=== PATIENT | female | born 1985 | race Caucasian/White ===

== ENCOUNTER 2017-02-18 08:12 | Emergency (ER) | payer MEDICAID ==
[~2017-02-18] VITALS: Ht 157.5 cm; Wt 63.5 kg
[~2017-02-18 08:12] MED LIST: APAP/HYDROCODON1 T13 PO; BACTRIM1 TAB; MACROBID100 MG PO; MOTRIN800 MG PO; PYR100 PO; ZOFRAN ODT4 MG SL
[2017-02-18 09:52] LABS: microscopic required? YES; urine erythrocyte TRACE (NEGATIVE)
[2017-02-18 09:54] LABS: AMPHETAMINE QUAL UR NONE DETECTED (NEG <=1000)
[2017-02-18 11:41] VITALS: BP 98/48
== END 2017-02-18 11:41 | disposition home or self-care (01) ==
LOC: ED 08:12
PROVIDERS: Emergency Medicine
DX: G43.909 Migraine, unspecified, not intractable, without status migrainosus (principal); Z88.1 Allergy status to other antibiotic agents
CPT/HCPCS: 80307; J1885

== ENCOUNTER 2017-03-19 20:26 | Emergency (ER) | payer MEDICAID ==
[2017-03-19 21:33] LABS: BASOPHIL % 0.4 % (0-2); PLATELET COUNT 210 x10^3mcL (130-400); RED CELL DISTRIBUTION WIDTH 13.9 % (11.5-14.5)
[2017-03-19 21:41] LABS: CARBON DIOXIDE 24.6 mmol/L (21-32); CHLORIDE SERUM 105 mmol/L (98-107); GFR1 > 60 mL/min; GLUCOSE SERUM 95 mg/dL (74-106); POTASSIUM SERUM 4.1 mmol/L (3.5-5.1); SODIUM SERUM 140 mmol/L (136-145)
[2017-03-19 21:45] LABS: ALBUMIN 3.8 g/dL (3.4-5.0); ALKALINE PHOSPHATASE 65 U/L (46-116); ALT/SGPT 26 U/L (14-59); AMYLASE 48 U/L (25-115); AST/SGOT 19 U/L (15-37); BILIRUBIN TOTAL 0.5 mg/dL (0.20-1.00); LIPASE 130 IU/L (73-393); TOTAL PROTEIN, SERUM 7.7 g/dL (6.4-8.2)
[2017-03-19 23:44] VITALS: BP 120/67
== END 2017-03-19 23:45 | disposition home or self-care (01) ==
LOC: ED 20:26
PROVIDERS: Emergency Medicine
DX: N10 Acute pyelonephritis (principal); Z79.899 Other long term (current) drug therapy; Z88.1 Allergy status to other antibiotic agents
CPT/HCPCS: 83880; J1885; J1956; J2405; J7030

== ENCOUNTER 2017-03-20 01:03 | Inpatient (IN) | payer MEDICAID ==
[~2017-03-20] VITALS: Ht 157.5 cm; Wt 61.2 kg
--- NOTE | 2017-03-20 01:22 | NUR ---
PT BIB [facility]. PT STATES SHE WAS JUST DISCHARGED FROM HERE THIS EVENING AND WHEN SHE GOT HOME THE "PAIN IN MY KIDNEYS GOT GOT WORSE". PER [facility] OT WAS DISCHARGED WITH A PERSCRIPTION FOR NORCO AND AN UNKNOWN ABX BUT LEFT PERSCRIPTION AND PERSCRIPTION ON TABLE AT HOME AND CAME BACK HERE WHEN PAIN GOT WORSE. PT AWAKE AND ALERT, RESP EVEN AND UNLABORED. NO DISTRESS NOTED
--- NOTE | 2017-03-20 01:39 | NUR ---
MSE COMPLETED BY DR PALACIOS
--- NOTE | 2017-03-20 01:57 | NUR ---
PT MEDICATED WITH 30MG TORADOL SLOW IV PUSH AND 4MG ZOFRAN SLOW IV PUSH PER MD ORDERS. NS INFUSING AT 150ML/HR VIA IV PUMP. PT AWAKE AND ALERT, SIGNIFICANT OTHER AT BEDSIDE, NO DISTRESS NOTED
--- NOTE | 2017-03-20 02:33 | NUR ---
REPORT CALLED TO JENNIFER TO ASSUME CARE OF PT
--- NOTE | 2017-03-20 03:09 | NUR ---
RECEIVED FROM ER VIA GURNEY. ADMITS FOR PYELONEPHRITIS. AWAKE, ALERT, ORIENTED X4. NO RESP DISTRESS NOTED ON ROOM AIR. V/S CHECKED BP 92/57, HR 84, RR 18, O2SAT 99% ON ROOM AIR, AFEBRILE. HOB ELEVATED AT 30DEG. ABDOMEN SOFT AND FLAT. MEDICAL STUDENT AT BEDSIDE. IV ACCESS TO LAC WITH NS INFUSING WELL. ORIENTING TO ROOM ENVIRONMENT. CALL LIGHT PLACED WITHIN EASY REACH. SIDERAILS UP X2.
[2017-03-20 03:23] VITALS: BP 92/57
--- NOTE | 2017-03-20 03:50 | NUR ---
MORPHINE 2MG IVP GIVEN FOR FLANK PAIN, NO ADVERSE REACTION NOTED.
[2017-03-20 03:51] LABS: FREE T4 1.14 ng/dL (0.76-1.46); FREE THYROXINE INDEX 2.6 ug/dL (1.4-4.5); T3 TOTAL 1.16 ng/mL; T4(THYROXINE) 7.3 ug/dL (4.7-13.3)
[2017-03-20 04:14] LABS: MAGNESIUM 2.1 mg/dL (1.8-2.4); PHOSPHOROUS 2.4 mg/dL (2.5-4.9)
--- NOTE | 2017-03-20 05:16 | NUR ---
LACTULOSE 15ML NOT AVAILABLE, DOCTOR ALLISON MADE AWARE, WILL ENDORSE TO INCOMING RN.
[2017-03-20 06:07] VITALS: BP 98/58
[2017-03-20 06:18] LABS: BASOPHIL % 0.4 % (0-2); PLATELET COUNT 196 x10^3mcL (130-400)
--- NOTE | 2017-03-20 06:24 | NUR ---
MORPHINE GIVEN X1 WITH GOOD RELIEF. NOT YET VOIDED. IVF NS INFUSING AT 126ML/HR.
[2017-03-20 06:31] LABS: CALCIUM 8.5 mg/dL (8.5-10.1); CHLORIDE SERUM 108 mmol/L (98-107); GFR1 > 60 mL/min; GLUCOSE SERUM 80 mg/dL (74-106); MAGNESIUM 2.1 mg/dL (1.8-2.4); PHOSPHOROUS 3.4 mg/dL (2.5-4.9); POTASSIUM SERUM 4.5 mmol/L (3.5-5.1); SODIUM SERUM 143 mmol/L (136-145)
--- NOTE | 2017-03-20 07:25 | NUR ---
A/O X4. CLEAR SPEECH. FOLLOW COMMANDS. TEL 29 SR HR 89. RADIAL AND PEDAL PULSES PALPABLE. NO EDEMA OR SWELLING NOTED. <3 SECS CAP REFILL. SCDS IN PLACED. ON RA SAT 99%. BREATHING EVEN AND UNLABORED. CLEAR LUNG SOUNDS. NO NVD. VOIDING ADEQUATELY. HAS MILD GENERALIZED WEAKNESS DUE TO PAIN. NO SKIN TEAR OR OPEN WOUND. COMPLAINS OF FLANK PAIN RADIATING TO BACK. SEE MAR FOR PAIN LEVEL. IV SITE INTACT ON LAC NS INFUSING AT 126 ML/HR. WILL CONTINUE TO MONITOR. CALL LIGHT WITHIN REACH.
--- NOTE | 2017-03-20 08:21 | NUR ---
TOOK MEDS WITHOUT DIFFICULTY. ASSISTED Pt TO BATHROOM.
--- NOTE | 2017-03-20 08:33 | NUR ---
Pt WENT DOWN FOR CT SCAN.
--- NOTE | 2017-03-20 08:41 | NUR ---
Pt CAME BACK FROM CT.
--- NOTE | 2017-03-20 08:41 | NUR ---
URINE SAMPLE SENT DOWN TO LAB.
[2017-03-20 09:26] VITALS: BP 107/67
[2017-03-20 10:00] LABS: microscopic required? YES; urine erythrocyte 3+ (NEGATIVE)
[2017-03-20 12:07] LABS: AMPHETAMINE QUAL UR NONE DETECTED (NEG <=1000)
[2017-03-20 13:03] VITALS: BP 100/63
--- NOTE | 2017-03-20 13:07 | NUR ---
SPOKE TO DR LEPE REGARDING Pt HAVING HEADACHE FROM [place] AND CURRENTLY PAIN IS AT 7/10. ORDERED TO GIVE TORADOL IV. IV 30MG TORADOL GIVEN. WILL CONTINUE TO MONITOR.
--- NOTE | 2017-03-20 13:36 | NUR ---
Pt COMPLAINING OF NAUSEA. IV ZOFRAN GIVEN.
--- NOTE | 2017-03-20 16:21 | NUR ---
Pt SLEEPING AT THIS TIME. NO DISTRESS NOTED. WILL CONTINUE TO MONITOR.
[2017-03-20 16:23] VITALS: BP 97/59
--- NOTE | 2017-03-20 16:55 | NUR ---
Pt COMPLAINING OF HEADACHE. TYLENOL GIVEN. WILL CONTINUE TO MONITOR.
--- NOTE | 2017-03-20 17:00 | NUR ---
COMPLAINS OF HEADACHE. TYLENOL GIVEN. WILL CONTINUE TO MONITOR.
--- NOTE | 2017-03-20 17:52 | NUR ---
Pt COMPLAINING OF NAUSEA. IV ZOFRAN GIVEN. WILL CONTINUE TO MONITOR.
--- NOTE | 2017-03-20 18:30 | NUR ---
X1 ATTEMPT IV INSERTED TO RFA GAUGE 20.
--- NOTE | 2017-03-20 18:58 | NUR ---
Pt COMPLAINING OF SHARP FLANK RADIATING TO BACK PAIN 04/24. IV MORPHINE GIVEN. WILL CONTINUE TO MONITOR.
--- NOTE | 2017-03-20 19:30 | NUR ---
SEEN AWAKE, ALERT,ORIENTED X4. NO RESP DISTRESS NOTED. STS FLANK PAIN IS TOLERABLE. LAST MORPHINE GIVEN WAS 1855HRS BY ALEKSANDR CRAIG. BRP. ON LEVAQUIN IV Q 24HRS. IVF NS INFUSING WELL TO 100ML/HR. PLAN OF CARE DISCUSSED. CALL LIGHT PLACED WITHIN EASY REACH. SIDERAILS UP X2.
[2017-03-20 21:01] VITALS: BP 107/68
--- NOTE | 2017-03-20 22:23 | NUR ---
STS HAVING HEADACHE, REFUSED NORCO OR TYLENOL OFFERRED, TORADOL IVP GIVEN. WILL BE MONITORED.
--- NOTE | 2017-03-21 05:12 | NUR ---
NO ACUTE DISTRESS THROUGHOUT THE SHIFT. VSS. MORPHINE 4MG IV GIVEN X1 FOR FLANK PAIN WITH GOOD RELIEF. BRP. NO BM AFTER LACTULOSE GIVEN. DUE ABX-LEVAQUIN IV GIVEN. IVF NS INFUSING WELL AT 100ML/HR.
[2017-03-21 05:47] VITALS: BP 101/59
[2017-03-21 06:49] LABS: CALCIUM 8.1 mg/dL (8.5-10.1); CARBON DIOXIDE 22.8 mmol/L (21-32); CHLORIDE SERUM 106 mmol/L (98-107); CREATININE SERUM 0.7 mg/dL (0.6-1.0); GFR1 > 60 mL/min; GLUCOSE SERUM 100 mg/dL (74-106); POTASSIUM SERUM 4.1 mmol/L (3.5-5.1); SODIUM SERUM 139 mmol/L (136-145)
[2017-03-21 06:51] LABS: BASOPHIL % 0.3 % (0-2); PLATELET COUNT 197 x10^3mcL (130-400); RED CELL DISTRIBUTION WIDTH 13.5 % (11.5-14.5)
--- NOTE | 2017-03-21 08:26 | NUR ---
Pt complaining of pain 8/10 in bilateral flanks and lower back. Pt given 4mg of morphine.
--- NOTE | 2017-03-21 09:00 | NUR ---
Pt is A+Ox4, has slight headche, complaining of 8/10 in bilateral flanks and lower back, NSR, HR: 95, pulses equal bilaterally, no edema present, lung sounds clear, Pt tolerating room air, Abdomen soft and distended, no BM since admittance, Chronic Pyelonephritis, ambulates independently, skin intact, constant pain, IV on RFA, site WNL, CDI, WBC: 8.3
--- NOTE | 2017-03-21 09:54 | NUR ---
Pt states she continues to be in pain 06/24 and is requesting additional pain meds. [place] tab given.
[2017-03-21 10:00] VITALS: BP 111/66
--- NOTE | 2017-03-21 10:50 | NUR ---
Pt complaining of nausea and migraine. Pt given Zofran 4mg and Tylenol 650 mg. Pt ambulated to the bathroom independently.
--- NOTE | 2017-03-21 13:05 | NUR ---
Pt continues to complain of nausea and migraine pain. Dr. Harris paged and prescribed firocet for migraine pain. Pt given morphine 4mg, and firocet for pain. Will continue to monitor Pt for pain.
--- NOTE | 2017-03-21 14:58 | NUR ---
Pt continues to complain of migraine pain 06/24 and continues to complain of nausea. Pt given Toradol. Will reassess Pt's pain level in 25 minutes.
--- NOTE | 2017-03-21 15:35 | NUR ---
Pt reported emesis x2, Zofran given. Pt continues to complain of migraine pain 06/24 and requesting dilaudid. Family and Pt requesting to speak with the DR. Dr. Harris notified and prescribed [place], will come see Pt today.
--- NOTE | 2017-03-21 15:55 | NUR ---
Have made attempts thoughout the entire shift to alleviate patient's pain and nausea, including morphine, toradol, norco, and zofran. Patient continues to complain of migraine pain and nausea. Dr. Harris notified and verbalized he will reassess the patient.
--- NOTE | 2017-03-21 16:25 | NUR ---
Pt requested Phenergan and it was given. Pt is now requesting AMA and does not want to speak to the DR. Pt reports that she is unhappy with the care she has received here and wants to go to another hospital. Will make Dr. Harris aware.
--- NOTE | 2017-03-21 16:32 | NUR ---
Dr. Harris made aware that patient is requesting AMA and that patient does not want to speak with
--- NOTE | 2017-03-21 16:46 | NUR ---
Pt given AMA form and refused to sign it. Pt also refused to have her IV removed. Pt stated that she wanted to call a friend before she signed the AMA form. Pt instructed to use the call light to call the nurse if she decides to continue with AMA.
--- NOTE | 2017-03-21 17:14 | NUR ---
UP AMBULATING IN HALLWAY TO VISIT AUNT WHO IS IN NEXT ROOM. FAMILY ASSISTING.
--- NOTE | 2017-03-21 18:00 | NUR ---
Nurse asked Pt about signing AMA form and pt refused. Pt also refused to have IV removed. Nurse instructed Pt to use the call light when Pt is ready to sign AMA form or changes her mind.
[2017-03-21 18:29] VITALS: BP 100/65
--- NOTE | 2017-03-21 18:46 | NUR ---
Pt signed AMA form, took all belongings, and was escorted by her cousin in a wheel chair to the lobby.
--- NOTE | 2017-03-21 18:48 | NUR ---
IV removed, catheter intact. Gauze and tape placed on site.
== END 2017-03-21 18:45 | disposition left against medical advice (07) | DRG 463 ==
LOC: ED 01:03 → DU 02:15 → MU 02:15 → DU 03:07 → MU 17:57
PROVIDERS: ADMIT Family Medicine
DX: N12 Tubulo-interstitial nephritis, not specified as acute or chronic (principal); N17.0 Acute kidney failure with tubular necrosis; G43.909 Migraine, unspecified, not intractable, without status migrainosus; E72.20 Disorder of urea cycle metabolism, unspecified; E83.39 Other disorders of phosphorus metabolism; Z87.440 Personal history of urinary (tract) infections; Z68.24 Body mass index [BMI] 24.0-24.9, adult
CPT/HCPCS: 80307; 83880; 84439; G0480; J1885; J2270; J2405; J2550; J7030; Q0092

== ENCOUNTER 2017-04-29 14:15 | Emergency (ER) | payer MEDICAID ==
[~2017-04-29] VITALS: Ht 157.5 cm; Wt 63.2 kg
[2017-04-29 17:34] VITALS: BP 98/79
== END 2017-04-29 17:34 | disposition home or self-care (01) ==
LOC: ED 14:15
DX: G43.909 Migraine, unspecified, not intractable, without status migrainosus (principal); Z98.51 Tubal ligation status; Z79.891 Long term (current) use of opiate analgesic; Z88.1 Allergy status to other antibiotic agents
CPT/HCPCS: J1200; J1885; J2765